=== PATIENT | female | born 1990 | race American Indian/Alaskan Native ===

== ENCOUNTER 2016-03-25 07:22 | Emergency (ER) | payer MEDICAID ==
[~2016-03-25] VITALS: Wt 63.5 kg
[2016-03-25] MEDS ORDERED: DOXY100T20 PO (07:55)
[2016-03-25] MEDS ORDERED: D-ME473S18 PO (07:55)
[2016-03-25] MEDS ORDERED: ALBU8.5H3 INH (07:55)
[2016-03-25] MEDS ORDERED: PRED20TA PO (07:55)
--- NOTE | 2016-03-25 09:26 | ERD ---
DATE OF SERVICE: ATTENDING PHYSICIAN: Dr. Reeves. HISTORY OF PRESENT ILLNESS: The patient is a 26-year-old female coming in complaining of a producti ve cough with phlegm. She states it has been going on for the last 3 weeks. [facility], given Tylenol, Phenergan, and antibiotics with no alleviation of her symptoms. She st ates that she did not take her complete course of antibiotics. MEDICAL HISTORY: Asthma. Never had pneumonia. ALLERGIES TO MEDICATIONS: NONE. SURGICAL HISTORY: Breast augmentation. SOCIAL HISTORY: Denies. REVIEW OF SYSTEMS: A 12-point review of systems was done. Refer to HPI for positives, all other sy stems negative. PHYSICAL EXAMINATION VITAL SIGNS: Temperature is 97.3, pulse 78, blood pressure is 118/72, respiratory 18, O2 saturation 100% on room air. Pain intensity 8/10. GENERAL: The patient is well-appearing, well-nourished, no acute distress. HEART: Regular rate and rhythm. No murmurs, clicks, rubs or gallops. No S3 or S4. CHEST: Clear to auscultation bilaterally. There are no rales, wheezes or rhonchi. HEENT: Atraumatic. Conjunctivae are pink. Pupils equal, round, and reactive to light. There is no s cleral icterus. Tympanic membranes clear bilaterally. Oropharynx clear. No nystagmus or photophobia . ABDOMEN: Soft, nontender and nondistended. Good bowel sounds. No rebound or guarding. No gross hermelindo tonitis. No gross organomegaly or masses. No Holman sign or McBurney point tenderness. SKIN: There is no apparent rash or petechia. The skin is warm and dry. NECK: C-spine is soft and supple. There is no meningismus. There is no cervical lymphadenopathy. No JVD. No bruits. No goiter. DIAGNOSIS: Cough. MEDICAL DECISION MAKING: I have low suspicion for pneumonia; however, I will treat patient with ant ibiotics for cough, it is productive in nature on evaluation. I have low suspicion for respiratory distress or hypoxia. Low suspicion for meningitis or sepsis. DISCHARGE: The patient is discharged stable. Patient is given a prescription for doxycycline, prom ethazine DM, albuterol, and prednisone, told to follow up with primary care within 1 to 2 days for r eevaluation. Patient was told if symptoms progress or worsen to return to the ER. All other questi ons answered at time of discharge. Discharge summary given at the time of departure. Patient under stood and complied with plan. Dictated By: CHEMA DIXON for CATRACHITA ANDINO/NTS Conf#: [id number] DID#: [id number]
== END 2016-03-25 08:38 | disposition home or self-care (01) ==
LOC: FTE 07:22
DX: R05 Cough (principal); J45.909 Unspecified asthma, uncomplicated